=== PATIENT | female | born 1950 | race Caucasian/White ===

== ENCOUNTER → 2018-04-28 | Outpatient (CLI) | payer OTHER ==
[~2018-04-28] MED LIST: Antivert25 MG PO; ELIQUIS5 MG PO; IBUP400 PO; METF500 PO; OMEP40CA12 PO; ZESTORETIC 20-121 EA
== END | disposition home or self-care (01) ==
LOC: LAB SHORT 09:02 → PLD 09:02
DX: C44.329 Squamous cell carcinoma of skin of other parts of face (principal)
CPT/HCPCS: 88305

== ENCOUNTER → 2018-06-03 | Outpatient (CLI) | payer OTHER | END | disposition home or self-care (01) | LOC: PLD 10:36 → LAB SHORT 10:36 | DX: C44.320 Squamous cell carcinoma of skin of unspecified parts of face (principal) | CPT/HCPCS: 88305 ==

== ENCOUNTER → 2019-06-06 | Outpatient (CLI) | payer OTHER, SELFPAY | LOC: LAB SHORT 11:12 → PLD 11:12 | DX: L82.1 Other seborrheic keratosis (principal) | CPT/HCPCS: 88305 ==

== ENCOUNTER → 2020-09-07 | Outpatient (CLI) | payer OTHER ==
[2020-09-10 13:46] LABS: Stool Occult Bld Immuno 1 Negative (NEGATIVE)
== END | disposition home or self-care (01) ==
LOC: LAB EV 08:47
PROVIDERS: Physician Assistant
DX: D64.9 Anemia, unspecified (principal)
CPT/HCPCS: G0328

== ENCOUNTER 2020-12-07 12:49 | Inpatient (IN) | payer OTHER ==
[~2020-12-07] VITALS: Ht 160 cm; Wt 101.6 kg
[~2020-12-07 12:49] MED LIST changes: +OMEP20ER PO; -OMEP40CA12 PO
[2020-12-07 13:38] LABS: BASOPHILS ABSOLUTE AUTO 0.07 K/mm3 (0.00-0.23); BASOPHILS PERCENT AUTO 1 % (0-2); EOSINOPHILS ABSOLUTE AUTO 0.24 K/mm3 (0.00-0.68); EOSINOPHILS PERCENT AUTO 3 % (0-6); Hematocrit 32.7 % (33.0-51.0); Hemoglobin 10.3 g/dL (11.5-16.0); IMMATURE GRAN ABSOLUTE AUTO 0.03 K/mm3 (0.00-0.10); IMMATURE GRAN PERCENT AUTO 0 % (0-1); LYMPHOCYTES ABSOLUTE AUTO 2.85 K/mm3 (0.84-5.20); LYMPHOCYTES PERCENT AUTO 34 % (21-46); MONOCYTES ABSOLUTE AUTO 1.03 K/mm3 (0.16-1.47); MONOCYTES PERCENT AUTO 12 % (4-13); Mean Corpuscular HGB 25.3 pg (26.0-34.0); Mean Corpuscular HGB Conc 31.5 g/dL (31.5-36.5); Mean Corpuscular Volume 80 fL (80-100); Mean Platelet Volume 9.3 fL (9.1-12.4); NEUTROPHILS ABSOLUTE AUTO 4.08 K/mm3 (1.96-9.15); NEUTROPHILS PERCENT AUTO 49 % (41-73); Platelet Count 425 K/mm3 (150-400); RDW Coefficient Variation 17.2 % (11.7-14.2); RDW Standard Deviation 50.9 fL (35.1-46.3); Red Blood Cell Count 4.07 M/mm3 (3.80-5.20)
[2020-12-07 13:48] LABS: Albumin, Blood 3.7 g/dL (3.4-5.0); Bilirubin, Total 0.3 mg/dL (0.1-1.0); Bun/Creatinine Ratio 33.7 (12.0-20.0); Calcium, Blood 9.6 mg/dL (8.5-10.1); Creatinine, Blood 0.98 mg/dL (0.40-1.00); Globulin, Blood 3.7 g/dL (2.2-4.0); Total Protein, Blood 7.4 g/dL (6.4-8.2)
[2020-12-07 18:18] LABS: SARS-Cov-2 (COVID-19) PCR, MMC POSITIVE (NEGATIVE)
--- NOTE | 2020-12-07 18:18 | NUR ---
PATIENT ARRIVED TO THE FLOOR VIA STRETCHER FROM THE ED. TRANSFERED TO BED FROM STRETCHER WITH NO ISSUES. COMPLAINS OF PAIN IN RIGHT HIP, MEDICATED PER MD PRN ORDERS, MED EFFECTIVE FOR PAIN. PATIENT ALERT AND ORIENTED X 4 AND ABLE TO MAKE NEEDS AND WANTS KNOWN AT THIS TIME. CALL LIGHT IN EASY REACH. WILL CONTINUE TO MONITOR.
--- NOTE | 2020-12-07 18:35 | NUR ---
RECIEVED CALL FROM LAB. COVID POSITIVE RESULT. NOTIFIED DR HERNANDEZ, HOSPITALIST. NO ORDERS, PT ASYMPTOMATIC. ISOLATION ORDERS PLACED.
[2020-12-08 04:13] LABS: BASOPHILS ABSOLUTE AUTO 0.04 K/mm3 (0.00-0.23); BASOPHILS PERCENT AUTO 1 % (0-2); EOSINOPHILS ABSOLUTE AUTO 0.04 K/mm3 (0.00-0.68); EOSINOPHILS PERCENT AUTO 1 % (0-6); Hematocrit 31.5 % (33.0-51.0); Hemoglobin 9.8 g/dL (11.5-16.0); IMMATURE GRAN ABSOLUTE AUTO 0.02 K/mm3 (0.00-0.10); IMMATURE GRAN PERCENT AUTO 0 % (0-1); LYMPHOCYTES ABSOLUTE AUTO 1.93 K/mm3 (0.84-5.20); LYMPHOCYTES PERCENT AUTO 25 % (21-46); MONOCYTES ABSOLUTE AUTO 1.24 K/mm3 (0.16-1.47); MONOCYTES PERCENT AUTO 16 % (4-13); Mean Corpuscular HGB 25.3 pg (26.0-34.0); Mean Corpuscular HGB Conc 31.1 g/dL (31.5-36.5); Mean Corpuscular Volume 81 fL (80-100); Mean Platelet Volume 9.1 fL (9.1-12.4); NEUTROPHILS ABSOLUTE AUTO 4.48 K/mm3 (1.96-9.15); NEUTROPHILS PERCENT AUTO 58 % (41-73); Platelet Count 289 K/mm3 (150-400); RDW Coefficient Variation 17.5 % (11.7-14.2); RDW Standard Deviation 52.3 fL (35.1-46.3); Red Blood Cell Count 3.87 M/mm3 (3.80-5.20); White Blood Cell Count 7.75 K/mm3 (4.00-11.30)
[2020-12-08 04:33] LABS: Alanine Aminotransfer (ALT/SGP 22 U/L (12-78); Albumin, Blood 3.2 g/dL (3.4-5.0); Albumin/Globulin Ratio 0.9 (0.8-1.8); Alk Phos 63 U/L (50-136); Anion Gap 7 mmol/L (6-16); Aspartate Aminotrans (AST/SGOT 15 U/L (12-37); Bilirubin, Total 0.4 mg/dL (0.1-1.0); Blood Urea Nitrogen 24 mg/dL (8-24); CO2, Blood 26 mmol/L (21-32); Calcium, Blood 8.4 mg/dL (8.5-10.1); Chloride, Blood 104 mmol/L (98-108); Creatinine, Blood 0.83 mg/dL (0.40-1.00); Globulin, Blood 3.5 g/dL (2.2-4.0); Glomerular Filtration Rate >60 (60-); Glucose, Blood 97 mg/dL (70-99); Sodium, Blood 137 mmol/L (136-145); Total Protein, Blood 6.7 g/dL (6.4-8.2)
--- NOTE | 2020-12-08 07:24 | NUR ---
PT TAKEN TO SURGERY AT THIS TIME.
--- NOTE | 2020-12-08 10:24 | NUR ---
PT RETURNED FROM PACU. SITTING UP AND DROWSY BUT AROUSABLE. PT DENIES PAIN AT THIS TIME. RETURNED ON 3 L O2 WITH SATS IN THE MID TO HIGH 90'S. PT IS HAVING SOME NAUSEA AND DID VOMIT 200 ML OF CLEAR MUCUS. SPOKE WITH DR. BALDERAS AND RECEIVED ORDER FOR NEW NAUSEA MEDICATION SINCE PT HAD JUST RECEIVED ZOFRAN AND STILL HAD VOMITING. PT IS COMFORTABLE IN BED EATING ICE CHIPS AND NOW TOLERATING WELL. PT HAS STRONG PEDAL PULSES. LUNGS SOUNDS ARE DIMINISHED IN BASES. EDUCATED PT ON DEEP BREATHING.
--- NOTE | 2020-12-08 14:29 | NUR ---
WEANED PT OFF OF O2. O2 SATS MAINTAINING AT 93% ON ROOM AIR. CONTINUOUS PULSE OX IN PLACE.
--- NOTE | 2020-12-08 15:13 | NUR ---
PT'S O2 SAT DESATURATED TO HIGH 90'S. PUT PT BACK ON 1 L O2 AND PT IS CURRENTLY AT 98%.
--- NOTE | 2020-12-08 18:07 | NUR ---
SHIFT SUMMARY POD 0 FOR R HIP GAMMA NAILING. PT WENT TO SURGERY FIRST THING THIS AM. TOLERATED WELL. AQUACEL X2 IS IN PLACE. UPPER DRESSING HAS A PEA SIZED BLOOD SPOT SHOWING THROUGH OTHERWISE C/D/I. LOWER DRESSING HAS A HALF DOLLAR SIZE BLOOD SPOT SHOWIN THROUGH, OTHERWISE C/D/I. PT RETURNED FROM PACU WITH SOME N/V WHICH THIS RN TREATED WITH MEDICATION PER EMAR. N/V HAS SINCE PASSED AND PT IS TOLERATING FOOD AND FLUIDS WELL W/O COMPLAINT OF N/V. PT WAS WEANED OFF OF 3 L O2 VIA NC OF WHICH SHE CAME BACK FROM PACU WITH. CONTINUOUS OX IS IN PLACE DUE TO H/O OF SLEEP HYPOXIA AND O2 SATS DROPPING TO HIGH 80'S AFTER WEANING. THIS RN THEN PLACED PT BACK ON 1 L O2 VIA NC AND PT IS CURRENTLY AT 98%. PT'S PAIN HAS BEEN MINIMAL. ONLY PAIN REPORTED WAS WITH MOVEMENT AND WORKING WITH PHYSICAL THERAPY AND PT WAS MEDICATED PER EMAR. PT WORKED WITH PHYSICAL THERAPY TODAY AND TOLERATED WELL. PT WAS ABLE TO GET UP INTO CHAIR OF WHICH SHE IS CURRENTLY IN. PT AMBULATES [facility] WITH GAITBELT AND 1 ASSIST. SHE IS USING THE BEDSIDE COMMODE.
--- NOTE | 2020-12-08 18:42 | NUR ---
DR. BALDERAS REQUESTED THAT PT BE RESTARTED ON ELIQUIS SOON ORTHO WAS COMFORTABLE WITH RESTARTING. EVAN OH CONTACTED REGARDING ELIQUIS AND REPORTED OK TO RESTART FOR EVENING DOSE.
--- NOTE | 2020-12-09 07:42 | NUR ---
SUMMARY PT PAINFUL WITH BACK TO BED TONIGHT.ENC TO REST AND NOT OVERDUE.
--- NOTE | 2020-12-09 09:04 | NUR ---
CHANGED R DISTAL HIP AQUACEL DRESSING PER REQUEST AT APPROX. 0830
--- NOTE | 2020-12-09 14:19 | NUR ---
WEANED PT OFF OF O2 WHILE UP IN CHAIR. PT MAINTAINING O2 SATURATION AT 95% ON ROOM AIR. CONTINUOUS PULSE OX IN PLACE.
--- NOTE | 2020-12-09 17:13 | NUR ---
VERBAL OKAY PER PT TO SPEAK WITH PT'S [id number], ANTOINETTE. ANTOINETTE WAS CONCERNED ABOUT PT BEING COVID POSITIVE AND COMING HOME DUE TO AN OLDER GENTLEMAN THAT LIVES AT THE HOME THAT HAS PARKINSON'S. ANTOINETTE WAS ALSO CONCERNED ABOUT THE ONLY SHOWER THAT IS A WALK IN IS THE ONE FOR THE OLDER GENTLEMAN AND THAT WOULD HAVE TO BE SHARED BY HIM AND THE PT. SPOKE WITH DR. BALDERAS REGARDING HER CONCERNS AND PER DR. BALDERAS WILL RETEST PT TOMORROW BEFORE DISCHARGE. IF NEGATIVE PT DOES NOT NEED TO WORRY ABOUT PASSING ANYTHING TO FAMILY. IF POSITIVE AGAIN, PT SHOULD CONTINUE TO QUARANTINE BEST SHE CAN AT HOME AND RETEST IN A FEW DAYS.
--- NOTE | 2020-12-09 17:23 | NUR ---
SHIFT SUMMARY POD 1 FOR R HIP GAMMA NAIL. PT IS A&O X3 WITH MILD FORGETFULNESS AND VERY PLEASANT. AQUACEL IS IN TACT WITH QUARTER SIZE BLOOD COLORED DRAINAGE THAT IS NOT TOUCHING THE EDGES ON THE PROXIMAL BANDAGE. DISTAL DRESSING IS C/D/I AND WAS CHANGED TODAY PER REQUEST FROM DR. SNOW. PT HAS BEEN IN THE CHAIR ALL DAY, GETTING UP TO USE THE BEDSIDE COMMODE WITH FWW, GAITBELT, AND A 1 PERSON ASSIST. NO REPORT OF N/V. SOME PAIN TODAY WITH MOVEMENT AND PT WAS MEDICATED PER EMAR. CALL LIGHT IS WITHIN REACH.
[2020-12-10 04:33] LABS: BASOPHILS ABSOLUTE AUTO 0.04 K/mm3 (0.00-0.23); BASOPHILS PERCENT AUTO 1 % (0-2); EOSINOPHILS PERCENT AUTO 1 % (0-6); Hematocrit 25.8 % (33.0-51.0); IMMATURE GRAN ABSOLUTE AUTO 0.03 K/mm3 (0.00-0.10); IMMATURE GRAN PERCENT AUTO 0 % (0-1); LYMPHOCYTES ABSOLUTE AUTO 2.35 K/mm3 (0.84-5.20); LYMPHOCYTES PERCENT AUTO 33 % (21-46); MONOCYTES ABSOLUTE AUTO 1.07 K/mm3 (0.16-1.47); MONOCYTES PERCENT AUTO 15 % (4-13); Mean Corpuscular HGB 25.8 pg (26.0-34.0); Mean Corpuscular Volume 83 fL (80-100); Mean Platelet Volume 9.7 fL (9.1-12.4); NEUTROPHILS ABSOLUTE AUTO 3.52 K/mm3 (1.96-9.15); NEUTROPHILS PERCENT AUTO 50 % (41-73); Platelet Count 303 K/mm3 (150-400); RDW Coefficient Variation 17.5 % (11.7-14.2); RDW Standard Deviation 53.5 fL (35.1-46.3); White Blood Cell Count 7.11 K/mm3 (4.00-11.30)
[2020-12-10 04:49] LABS: Anion Gap 3 mmol/L (6-16); Blood Urea Nitrogen 18 mg/dL (8-24); Bun/Creatinine Ratio 21.2 (12.0-20.0); CO2, Blood 29 mmol/L (21-32); Calcium, Blood 8.4 mg/dL (8.5-10.1); Chloride, Blood 104 mmol/L (98-108); Creatinine, Blood 0.85 mg/dL (0.40-1.00); Glomerular Filtration Rate >60 (60-); Glucose, Blood 91 mg/dL (70-99); Potassium, Blood 3.9 mmol/L (3.5-5.5); Sodium, Blood 136 mmol/L (136-145)
--- NOTE | 2020-12-10 06:42 | NUR ---
PT IS A/OX3, BUT FORGETFUL AT TIMES. ABLE TO MAKE HER NEEDS NKOWN. PLEASANT AND COOPERATIVE WITH STAFF AND HER CARE. NO EVENTS DURING NOC. PT IS S/P RT HIP GAMMA NAILING FOR FX SUSTAINGED IN GLF. RT HIP INCISIONS COVERED WITH AQUACEL DRSGS. SM AMT OLD BLOODY DRNG. 1PA WITH BED REPOSITIONING. USED BED EASLEY. PRN NORCO GIVEN W/GOOD RESULTS. OXYGEN AT 1L PER NC WHILE SLEEPING D/T DE-SATS WHEN ASLEEP. HX OF SLEEP APNEA. PIV TO RT WRIST, PATENT, SL.
--- NOTE | 2020-12-10 07:58 | NUR ---
12/10/20 0758 Jessica Wolff VERIFICATIONS: EDIT CHART.
[2020-12-10 09:33] LABS: SARS-Cov-2 (COVID-19) PCR, MMC POSITIVE (NEGATIVE)
--- NOTE | 2020-12-10 15:50 | NUR ---
214: J.S. Per chart review with Dr. Anderson, pt is COVID positive and is stable to discharge home today. Pt will need home health services, she would like to use [facility]. Pt lives alone but her son helps her out. Son will be coming to get her at discharge around 6pm. Pt reports thaqt she does not need any DME. Pt requested help with OHP, will get her in contact with David at [facility] to help with insurances. Notified Dr. Mcneal that floor nurse can help with getting the pt's pain medications scripts for discharge. Waiting for pt's home O2 eval to be completed so oxygen can be ordered. ([employer] went down during charting and also [employer]. Unable to order any equipment or put notes into either system.) -[email or web address]
[2020-12-10] MEDS ORDERED: HYDR1TAB94 PO (16:56)
--- NOTE | 2020-12-10 18:25 | NUR ---
SHIFT SUMMARY/DISCHARGE SUMMARY PT TOLERATING WEIGHTBEARING STATUS WELL. AMBULATING TO BEDSIDE COMMODE AND BACK TO CHAIR OR BED. PAIN BEING MANAGED PER EMAR. HOME O2 EVAL DONE AND PATIENT DOES NOT NEED O2 FOR DURING THE DAY, STATS STAYING ABOVE 98% IF PT IS AWAKE. IV TAKEN OUT, WRITTEN AND VERBAL DISCHARGE INSTRUCTIONS GIVEN. PT VERBALIZES UNDERSTANDING. BELONGINGS TAKEN OUT WITH PT. PT TO DISCHARGE HOME VIA AUTOMOBILE WITH SON. EXTRA DRESSINGS SENT HOME WITH PT. SLEEP EVAL TO BE DONE OUTPATIENT. PT DC'D AT APPROX 1810.
== END 2020-12-10 18:21 | disposition home or self-care (01) | DRG 480 ==
LOC: ER 12:49 → SURS 16:30
PROVIDERS: Orthopaedic Surgery; Physician Assistant; ADMIT Family Medicine
PROC: 0QS636Z Reposition Right Upper Femur with Intramedullary Internal Fixation Device, Percutaneous Approach (ICD-10-PCS; principal; 2020-12-08 07:30)
DX: M80.051A Age-related osteoporosis with current pathological fracture, right femur, initial encounter for fracture (principal); U07.1 COVID-19; E72.11 Homocystinuria; I12.9 Hypertensive chronic kidney disease with stage 1 through stage 4 chronic kidney disease, or unspecified chronic kidney disease; E11.22 Type 2 diabetes mellitus with diabetic chronic kidney disease; N18.30 Chronic kidney disease, stage 3 unspecified; K21.9 Gastro-esophageal reflux disease without esophagitis; E78.5 Hyperlipidemia, unspecified; G25.81 Restless legs syndrome; G47.33 Obstructive sleep apnea (adult) (pediatric); G47.36 Sleep related hypoventilation in conditions classified elsewhere; K22.70 Barrett's esophagus without dysplasia; E66.9 Obesity, unspecified; W18.30XA Fall on same level, unspecified, initial encounter; Y92.512 Supermarket, store or market as the place of occurrence of the external cause; Z68.38 Body mass index [BMI] 38.0-38.9, adult; Z91.19 Patient's noncompliance with other medical treatment and regimen; Z79.899 Other long term (current) drug therapy; Z79.01 Long term (current) use of anticoagulants; Z79.84 Long term (current) use of oral hypoglycemic drugs
CPT/HCPCS: 36415; 73502; 80048; 80053; 82947; 85025; 94761; 94762; 96374-59; 96375-59; 96376-59; 97110; 97116; 97161; 97530; 99285-25; A9270; C1713; J0690; J1100; J1885; J2270; J2370; J2405; J2550; J2704; J3010; J7030; U0004

== ENCOUNTER 2021-11-12 03:49 | Emergency (ER) | payer OTHER | END 2021-11-12 06:59 | disposition home or self-care (01) | LOC: ER 03:49 | DX: R42 Dizziness and giddiness (principal); I12.9 Hypertensive chronic kidney disease with stage 1 through stage 4 chronic kidney disease, or unspecified chronic kidney disease; E11.22 Type 2 diabetes mellitus with diabetic chronic kidney disease; N18.30 Chronic kidney disease, stage 3 unspecified; K21.9 Gastro-esophageal reflux disease without esophagitis; Z79.84 Long term (current) use of oral hypoglycemic drugs; Z79.899 Other long term (current) drug therapy ==

== ENCOUNTER → 2021-11-20 | Outpatient (CLI) | payer OTHER ==
[~2021-11-20] MED LIST changes: +HYDR1TAB94 PO; +VALIUM PO
== END | disposition home or self-care (01) ==
LOC: LAB SHORT 10:57
DX: D48.5 Neoplasm of uncertain behavior of skin (principal)
CPT/HCPCS: 88305

== ENCOUNTER → 2022-01-27 | Outpatient (CLI) | payer OTHER ==
[2022-01-28 09:24] LABS: Stool Occult Bld Immuno 1 Negative (NEGATIVE); Stool Occult Bld Immuno 2 Negative (NEGATIVE); Stool Occult Bld Immuno 3 Negative (NEGATIVE)
== END | disposition home or self-care (01) ==
LOC: LAB 12:14 → LAB SHORT 12:14
PROVIDERS: Physician Assistant
DX: D50.9 Iron deficiency anemia, unspecified (principal)
CPT/HCPCS: G0328

== ENCOUNTER → 2022-07-26 | Outpatient (CLI) | payer OTHER ==
[2022-07-29 10:34] LABS: Stool Occult Bld Immuno 1 Positive (NEGATIVE)
== END | disposition home or self-care (01) ==
LOC: LAB SHORT 18:30 → LAB 18:30
PROVIDERS: Physician Assistant
DX: K92.1 Melena (principal)
CPT/HCPCS: 82274

== ENCOUNTER 2022-11-19 10:39 | Day surgery (SDC) | payer OTHER ==
[~2022-11-19] VITALS: Ht 160 cm; Wt 97.7 kg
[2022-11-19 12:11] VITALS: BP 130/83
--- NOTE | 2022-11-19 12:11 | NUR ---
11/19/22 1211 Ilya Moore IV REMOVED INTACT. SITE WNL.
== END 2022-11-19 12:00 | disposition home or self-care (01) ==
LOC: ORSCSDS 10:39
PROVIDERS: Internal Medicine Gastroenterology
PROC: 0DJD8ZZ Inspection of Lower Intestinal Tract, Via Natural or Artificial Opening Endoscopic (ICD-10-PCS; principal; 2022-11-19 12:30)
DX: D50.9 Iron deficiency anemia, unspecified (principal); K64.8 Other hemorrhoids; K57.30 Diverticulosis of large intestine without perforation or abscess without bleeding; I10 Essential (primary) hypertension; E66.9 Obesity, unspecified; K21.9 Gastro-esophageal reflux disease without esophagitis; G47.33 Obstructive sleep apnea (adult) (pediatric); K22.70 Barrett's esophagus without dysplasia; Z86.718 Personal history of other venous thrombosis and embolism; Z79.01 Long term (current) use of anticoagulants; Z79.899 Other long term (current) drug therapy; Z79.84 Long term (current) use of oral hypoglycemic drugs
CPT/HCPCS: 82947; J2704; J7120

== ENCOUNTER 2024-08-24 05:45 | Inpatient (IN) | payer OTHER ==
[~2024-08-24] VITALS: Ht 160 cm; Wt 89.4 kg
[2024-08-24 06:24] LABS: BASOPHILS ABSOLUTE AUTO 0.04 K/mm3 (0.00-0.23); BASOPHILS PERCENT AUTO 0 % (0-2); EOSINOPHILS ABSOLUTE AUTO 0.03 K/mm3 (0.00-0.68); EOSINOPHILS PERCENT AUTO 0 % (0-6); Hematocrit 36.7 % (33.0-51.0); Hemoglobin 12.2 g/dL (11.5-16.0); IMMATURE GRAN ABSOLUTE AUTO 0.06 K/mm3 (0.00-0.10); IMMATURE GRAN PERCENT AUTO 0 % (0-1); LYMPHOCYTES PERCENT AUTO 4 % (21-46); MONOCYTES ABSOLUTE AUTO 1.51 K/mm3 (0.16-1.47); MONOCYTES PERCENT AUTO 10 % (4-13); Mean Corpuscular HGB 28.9 pg (26.0-34.0); Mean Corpuscular HGB Conc 33.2 g/dL (31.5-36.5); Mean Corpuscular Volume 87 fL (80-100); Mean Platelet Volume 8.9 fL (9.1-12.4); NEUTROPHILS PERCENT AUTO 85 % (41-73); Platelet Count 332 K/mm3 (150-400); RDW Coefficient Variation 13.5 % (11.7-14.2); RDW Standard Deviation 42.5 fL (35.1-46.3); Red Blood Cell Count 4.22 M/mm3 (3.80-5.20); White Blood Cell Count 15.94 K/mm3 (4.00-11.30)
[2024-08-24] MEDS ORDERED: FentaNYL Citrate 50 MCG/ML 2 ML Injection IV ONE (06:35)
[2024-08-24] MEDS ORDERED: Ondansetron HCl 2 MG / ML 2ML Vial IV ONE (06:35)
[2024-08-24 06:50] LABS: Albumin, Blood 3.8 g/dL (3.4-5.0); Albumin/Globulin Ratio 1.1 (0.8-1.8); Bilirubin, Total 0.5 mg/dL (0.1-1.0); Bun/Creatinine Ratio 28.9 (12.0-20.0); Creatinine, Blood 0.76 mg/dL (0.40-1.00); Globulin, Blood 3.5 g/dL (2.2-4.0); Potassium, Blood 3.4 mmol/L (3.5-5.5); Total Protein, Blood 7.3 g/dL (6.4-8.2)
[2024-08-24 07:59] LABS: Source, Urine Clean Catch
[2024-08-24 08:03] LABS: Appearance, Urine Clear (Clear); Bilirubin, Urine Neg (Neg); Blood, Urine Neg (Neg); Color, Urine Yellow (P-Yellow); Glucose Qualitative, Urine Neg (Neg); Ketones, Urine Neg (Neg); Leukocyte Esterase, Urine Neg (Neg); Nitrite, Urine Neg (Neg); Protein, Urine 1+ (Neg); Specific Gravity, Urine 1.015 (1.003-1.022); Urobilinogen, Urine NORM (Normal)
[2024-08-24] MEDS ORDERED: NS 1,000 ML IV SCH (09:50)
[2024-08-24] MEDS ORDERED: CefTRIAXone Sodium 1,000 MG in NS 100 ML IV ONE (09:50)
[2024-08-24] MEDS ORDERED: MetroNIDAZOLE 500MG/NS 100 ml 100 ML IV ONE (09:50)
[2024-08-24] MEDS ORDERED: Acetaminophen 500 MG Tab PO PRN (12:05)
[2024-08-24] MEDS ORDERED: Lactated Ringer's 1,000 ML IV SCH (12:05)
[2024-08-24] MEDS ORDERED: Magnesium Hydroxide Conc 10 ML UDC PO PRN (12:05)
[2024-08-24 15:17] VITALS: BP 117/49
[2024-08-24] MEDS ORDERED: AMLO5 PO (15:22)
[2024-08-24 16:26] VITALS: BP 125/55
[2024-08-24] MEDS ORDERED: Omeprazole 20 MG CapCR PO SCH (16:30)
--- NOTE | 2024-08-24 18:31 | NUR ---
SHIFT SUMMARY MS HU ARRIVED FROM ER VIA WHEELCHAIR AT 1504HRS TO MEDICAL UNIT. SHE WAS ABLE TO TRANSFER STEADILY AND INDEPENDENTLY TO THE BED AND TO THE BATHROOM. SHE C/O 4/10 RLQ ABDOMINAL PAIN WHICH SHE SAID IS TOLERABLE AND NOT BAD WHEN SHE IS IN BED, INCREASES WHEN SHE STANDS AND WALKS. PLACED ON TELEMETRY IN SR. IVF INFUSING AT 125CC/HR. TOLERATING PO FLUIDS WITHOUT C/O NAUSEA. SHE HAS A BRUISE ON HER RIGHT FOREHEAD FROM A FEW DAYS AGO WHEN A CUPBOARD DOOR HIT HER HEAD, OTHERWISE SKIN LOOKS GOOD. ORIENTATED X4. BED LOW, ALL LIGHT IN REACH.
[2024-08-24 19:37] VITALS: BP 138/55
[2024-08-24] MEDS ORDERED: Lactobacil 2-S.Thermo-Bifido 1 1 Cap PO SCH (21:00)
[2024-08-24] MEDS ORDERED: Docusate Sodium 100 MG Cap PO SCH (21:00)
[2024-08-25] VITALS (16 sets, daily range): BP systolic 95–148; BP diastolic 46–92
--- NOTE | 2024-08-25 06:31 | NUR ---
SHIFT SUMMARY PT HAS BEEN RESTING COMFORTABLY OVERNIGHT. PT HAS BEEN AOX4, CALM AND COOPERATIVE. SHE HAS BEEN SBA TO RESTROOM. PT HAD COMPLAINTS OF ABD PAIN, AND SHE WAS GIVEN TYLENOL, WHICH RELIEVED HER PAIN. PT HAD NO OTHER COMPLAINTS. SHE HAS BEEN ON TELE WITH NO EVENTS OVERNIGHT. PT HAD UNEVENTFUL NIGHT.
[2024-08-25] MEDS ORDERED: AmLODIPine Besylate 5 MG Tab PO SCH (09:00)
[2024-08-25] MEDS ORDERED: HydroCHLOROthiazide 25 mg Tab PO SCH (09:00)
[2024-08-25] MEDS ORDERED: CefTRIAXone Sodium 1,000 MG in NS 100 ML IV SCH (09:00)
[2024-08-25] MEDS ORDERED: MetroNIDAZOLE 500MG/NS 100 ml 100 ML IV SCH (09:00)
[2024-08-25] MEDS ORDERED: Enoxaparin 40 MG/0.4 ML SYR SC SCH (09:00)
[2024-08-25] MEDS ORDERED: Lisinopril 20 MG Tab PO SCH (09:00)
[2024-08-25 09:14] LABS: BASOPHILS ABSOLUTE AUTO 0.05 K/mm3 (0.00-0.23); BASOPHILS PERCENT AUTO 0 % (0-2); EOSINOPHILS ABSOLUTE AUTO 0.03 K/mm3 (0.00-0.68); EOSINOPHILS PERCENT AUTO 0 % (0-6); Hemoglobin 10.3 g/dL (11.5-16.0); IMMATURE GRAN ABSOLUTE AUTO 0.08 K/mm3 (0.00-0.10); IMMATURE GRAN PERCENT AUTO 1 % (0-1); LYMPHOCYTES ABSOLUTE AUTO 1.66 K/mm3 (0.84-5.20); LYMPHOCYTES PERCENT AUTO 10 % (21-46); MONOCYTES ABSOLUTE AUTO 1.11 K/mm3 (0.16-1.47); MONOCYTES PERCENT AUTO 7 % (4-13); Mean Corpuscular HGB 28.9 pg (26.0-34.0); Mean Corpuscular HGB Conc 32.2 g/dL (31.5-36.5); Mean Corpuscular Volume 90 fL (80-100); Mean Platelet Volume 9.2 fL (9.1-12.4); NEUTROPHILS ABSOLUTE AUTO 13.91 K/mm3 (1.96-9.15); NEUTROPHILS PERCENT AUTO 83 % (41-73); Platelet Count 285 K/mm3 (150-400); RDW Coefficient Variation 13.5 % (11.7-14.2); RDW Standard Deviation 44.4 fL (35.1-46.3); Red Blood Cell Count 3.57 M/mm3 (3.80-5.20); White Blood Cell Count 16.84 K/mm3 (4.00-11.30)
[2024-08-25] MEDS ORDERED: NS 250 ML IV PRN (09:30)
[2024-08-25 09:39] LABS: Albumin/Globulin Ratio 0.9 (0.8-1.8); Bilirubin, Total 0.6 mg/dL (0.1-1.0); Bun/Creatinine Ratio 19.4 (12.0-20.0); Calcium, Blood 9.2 mg/dL (8.5-10.1); Creatinine, Blood 0.72 mg/dL (0.40-1.00); Globulin, Blood 3.5 g/dL (2.2-4.0); Potassium, Blood 3.4 mmol/L (3.5-5.5); Total Protein, Blood 6.5 g/dL (6.4-8.2)
[2024-08-25] MEDS ORDERED: Potassium Chl 20MEQ/Water100ML 100 ML IV STA (09:54)
[2024-08-25 12:21] LABS: International Normalized Ratio 0.95; Prothrombin Time Results 10.5 Sec (9.7-11.5)
[2024-08-25] MEDS ORDERED: Dose Adjust by Pharmacy XX STA (12:59)
[2024-08-25] MEDS ORDERED: Heparin Sodium,Porcine/0.5 NS 500 ML IV SCH (13:00)
[2024-08-25] MEDS ORDERED: NS 500 ML IV SCH (14:00)
--- NOTE | 2024-08-25 14:33 | NUR ---
MD CALL REPORTED TO DR JACOB THAT PT C/O BLACK SPOTS IN FRONT OF HER LEFT EYE. NO HEADACHE. BP STABLE. NO NEW ORDERS
--- NOTE | 2024-08-25 16:53 | NUR ---
SHIFT SUMMARY MS HU IS ORIENTATED X 4. UP INDEPENDENTLY TO THE BATHROOM, STEADY GAIT. CT ABDOMEN/PELVIS DONE AND ECHO DONE TODAY. HEPARIN DRIP STARTED AT 1400HRS. SHE HAS MODERATE ABDOMINAL PAIN THAT IS HELPED WITH TYLENOL. THE BLACK SPOTS IN HER LEFT EYE VISION WERE THERE TEMPORARILY AND WENT AWAY. PLAN FOR MESENTERIC ANGIOGRAM TODAY.
[2024-08-25] MEDS ORDERED: NS 250 ML IV ONE (18:36)
[2024-08-25] MEDS ORDERED: NS 1,000 ML IV ONE ×2 (18:36→18:37)
[2024-08-25] MEDS ORDERED: Heparin Sodium 1000 Units/ML 10ML MDV ONE (18:36)
[2024-08-25] MEDS ORDERED: FentaNYL Citrate 50 MCG/ML 2 ML Injection ONE (18:37)
[2024-08-25] MEDS ORDERED: Midazolam HCl 1MG / ML 2ML Vial ONE (18:37)
--- NOTE | 2024-08-25 18:49 | NUR ---
MAYTE LEFT FOR TITLE INSURANCE EXAMINER VIA WHEELCHAIR.
--- NOTE | 2024-08-25 20:41 | NUR ---
ARRIVAL TO UNIT - PT ARRIVES AT PCU19 FROM MEDICAID SPECIALIST AT APPROX 2000. TWO STENTS PLACED IN MEDICAID SPECIALIST [facility]. SHE IS ALERT AND ORIENTEDX4, SHE DENIES ANY PAIN. ON ROOM AIR, SATS ABOVE 90%. VSS. SHE IS A SUPINE POSITION. RIGHT FEMORAL SITE IS WITHIN NORMAL LIMITS, THERE IS NO BRUISING, NO HEMATOMA, NO SWELLING. VERY SMALL AMOUNT OF BLOOD VISIBLE UNDER DRESSING. MONITORING VITALS Q15, PT TO REMAIN SUPINE FOR 1.5 HOURS. GRANDTR NOTIFIED OF TRANSFER TO PCU AND MEDICAID SPECIALIST PROCEDURE.
[2024-08-25] MEDS ORDERED: FentaNYL Citrate 50 MCG/ML 2 ML Injection IV PRN (20:50)
[2024-08-26] VITALS (9 sets, daily range): BP systolic 103–144; BP diastolic 50–66
--- NOTE | 2024-08-26 04:44 | NUR ---
SHIFT SUMMARY - A/OX4, USES CALL LIGHT APPROPRIATELY, VERBALIZES NEEDS, PLEASANT AND COOPERATIVE WITH CARE. SHE ENDORSES MODERATE TO SEVERE LOWER QUADRANT ABDOMINAL PAIN THAT IS IMPROVED WITH MEDICATION. ON CONTINUOUS TELEMETRY, HR IN 80 S, BPS 100 S-120 S SYSTOLIC. RIGHT FEMORAL SITE IS DRESSED WITH TEGADERM, SMALL AMOUNT OF DRIED BLOOD NOTED, NO SWELLING, NO HEMATOMA. PT DENIES PAIN AT THE SITE. PEDAL PULSES PALPABLE BILATERALLY, BLE WARM TO TOUCH EQUALLY. ON RA, SATS ABOVE 90%, BREATHING IS EVEN AND UNLABORED. PT HAD BRIEF EPISODES OF DESATURATIONS IN THE 70 S AND 80 S WHILE SLEEPING, BUT RECOVERED QUICKLY AFTER WAKING AND REPOSITIONING. SHE STATES SHE HAS NO HX OF SLEEP APNEA AND DOES NOT USE OXYGEN AT HOME. SBA FOR LINE MANAGEMENT. HEPARIN GTT RUNNING AT 12/u/kg. PT HAS BRUISE ON RIGHT SIDE OF FOREHEAD FROM BUMPING HER HEAD ON A KITCHEN CABINET. SHE IS CONTINENT OF URINE AND STOOL.
[2024-08-26 05:10] LABS: Cholesterol 121 mg/dL (50-200); HDL Cholesterol 41 mg/dL (>39); LDL/HDL RATIO 1.4; Low Density Lipoprotein Chol 57 mg/dL (0-110); Triglycerides 115 mg/dL (30-160); Very Low Density Lipoprot Chol 23 mg/dL (6-32)
[2024-08-26] MEDS ORDERED: Dose Adjust by Pharmacy XX STA (05:42)
[2024-08-26] MEDS ORDERED: Pantoprazole Sodium 40 MG Tab PO SCH (06:00)
[2024-08-26 06:05] LABS: Hematocrit 29.6 % (33.0-51.0); Hemoglobin 9.5 g/dL (11.5-16.0); Mean Platelet Volume 9.8 fL (9.1-12.4); Platelet Count 269 K/mm3 (150-400)
[2024-08-26] MEDS ORDERED: Clopidogrel Bisulfate 75 MG Tab PO SCH (09:00)
[2024-08-26] MEDS ORDERED: CefTRIAXone Sodium 2,000 MG in NS 100 ML IV SCH (09:00)
[2024-08-26] MEDS ORDERED: Apixaban 5 MG Tab PO SCH (11:00)
--- NOTE | 2024-08-26 17:49 | NUR ---
Pt has reported minimal pain today, in her right groin site where the femoral artery was accessed yesterday. There is no bruising, no bleeding and no swelling at the site. She has been walking around the room, to the bathroom since this morning without difficulty. She has not had any increased discomfort with eating or drinking. Tolerating a soft diet but said that it felt a little "too rich" for lunch and just wanted cottage cheese and fruit for dinner.
--- NOTE | 2024-08-26 18:47 | NUR ---
Shift summary: Pt has been moving from chair to bed throughout the shift. We have advanced diet as tolerated, which pt has done well with. She has not reported nausea, and pain has been treated with tylenol PRN. Pt has had flatulence since procedure. Pt is motivated to improve overall condition and D/C.
[2024-08-27 00:21] VITALS: BP 131/67
[2024-08-27 04:50] VITALS: BP 142/69
[2024-08-27 05:01] LABS: BASOPHILS ABSOLUTE AUTO 0.05 K/mm3 (0.00-0.23); BASOPHILS PERCENT AUTO 1 % (0-2); EOSINOPHILS PERCENT AUTO 4 % (0-6); Hematocrit 30.3 % (33.0-51.0); IMMATURE GRAN ABSOLUTE AUTO 0.03 K/mm3 (0.00-0.10); IMMATURE GRAN PERCENT AUTO 0 % (0-1); LYMPHOCYTES ABSOLUTE AUTO 1.67 K/mm3 (0.84-5.20); LYMPHOCYTES PERCENT AUTO 22 % (21-46); MONOCYTES ABSOLUTE AUTO 0.86 K/mm3 (0.16-1.47); MONOCYTES PERCENT AUTO 11 % (4-13); Mean Corpuscular HGB 28.8 pg (26.0-34.0); Mean Corpuscular Volume 87 fL (80-100); Mean Platelet Volume 9.4 fL (9.1-12.4); NEUTROPHILS ABSOLUTE AUTO 4.68 K/mm3 (1.96-9.15); NEUTROPHILS PERCENT AUTO 62 % (41-73); Platelet Count 299 K/mm3 (150-400); RDW Coefficient Variation 13.3 % (11.7-14.2); Red Blood Cell Count 3.47 M/mm3 (3.80-5.20); White Blood Cell Count 7.59 K/mm3 (4.00-11.30)
[2024-08-27 05:44] LABS: Albumin, Blood 2.6 g/dL (3.4-5.0); Albumin/Globulin Ratio 0.8 (0.8-1.8); Bilirubin, Total 0.4 mg/dL (0.1-1.0); Bun/Creatinine Ratio 15.1 (12.0-20.0); Calcium, Blood 8.7 mg/dL (8.5-10.1); Creatinine, Blood 0.73 mg/dL (0.40-1.00); Globulin, Blood 3.4 g/dL (2.2-4.0); Magnesium, Blood 2.1 mg/dL (1.6-2.4); Phosphorus, Blood 3.4 mg/dL (2.5-4.9); Potassium, Blood 3.5 mmol/L (3.5-5.5)
--- NOTE | 2024-08-27 05:59 | NUR ---
SHIFT SUMM: PT WAS A PCU TRANSFER LAST NIGHT AND HAS BEEN DOING WELL RESTING AND SLEEPING. PT IS IND IN ROOM AND CALLS TO MAKE NEEDS KNOWN. PT ON RA AND TELE W/NSR IN THE 80'S. PT'S R GROIN SITE IS WNL. BM YESTERDAY. PT WAS MEDICATED FOR PAIN PER EMAR. POSSIBLE TO D/C TODAY. CALL LIGHT IN REACH AND BED LOW AND LOCKED.
[2024-08-27 07:37] VITALS: BP 135/68
[2024-08-27 11:44] VITALS: BP 144/72
[2024-08-27] MEDS ORDERED: PANT40 PO (12:49)
[2024-08-27] MEDS ORDERED: VISBIOME 112.51 EACH PO (12:50)
[2024-08-27] MEDS ORDERED: CLOP75 PO (12:50)
--- NOTE | 2024-08-27 13:54 | NUR ---
DISCHARGE PT DISCHARGE HOME. PT REFUSED ESCORT OUT. PT CALLING SON FOR RIDE. SHE PREFERS TO WAIT OUTSIDE. IV X2 REMOVED WITH CANNULA INTACT. COBAN/GAUZE APPLIED. CARE ONGOING.
== END 2024-08-27 14:00 | disposition home or self-care (01) | DRG 252 ==
LOC: ER 05:45 → MEDS 05:46 → PCU 08-25 20:43 → MEDS 08-26 23:42
PROVIDERS: Emergency Medicine; Hospitalist; ADMIT Family Medicine
PROC: 04HC3DZ Insertion of Intraluminal Device into Right Common Iliac Artery, Percutaneous Approach (ICD-10-PCS; principal; 2024-08-25)
PROC: B4141ZZ Fluoroscopy of Superior Mesenteric Artery using Low Osmolar Contrast (ICD-10-PCS; 2024-08-25)
DX: I77.1 Stricture of artery (principal); K55.039 Acute (reversible) ischemia of large intestine, extent unspecified; D68.59 Other primary thrombophilia; E72.11 Homocystinuria; K52.9 Noninfective gastroenteritis and colitis, unspecified; K59.09 Other constipation; K21.9 Gastro-esophageal reflux disease without esophagitis; K22.70 Barrett's esophagus without dysplasia; I70.1 Atherosclerosis of renal artery; I12.9 Hypertensive chronic kidney disease with stage 1 through stage 4 chronic kidney disease, or unspecified chronic kidney disease; N18.30 Chronic kidney disease, stage 3 unspecified; G25.81 Restless legs syndrome; E11.22 Type 2 diabetes mellitus with diabetic chronic kidney disease; Z98.890 Other specified postprocedural states; E78.5 Hyperlipidemia, unspecified; Z90.710 Acquired absence of both cervix and uterus; Z90.721 Acquired absence of ovaries, unilateral; Z88.8 Allergy status to other drugs, medicaments and biological substances; Z79.01 Long term (current) use of anticoagulants; Z79.899 Other long term (current) drug therapy
CPT/HCPCS: 36415; 37221; 74174; 74177; 75726; 76937; 80053; 80061; 83605; 83735; 84100; 85014; 85018; 85025; 85049; 85610; 85730; 93306; 94760; 96365; 96366; 96367; 96372; 96375; 99152; 99153; 99285-25; A9270; C1760; C1769; C1876; C1887; C1894; G0378; J0696; J1644; J1650; J2250; J2405; J3010; J3480; J7030; J7040; J7050; J7120; Q9967

== ENCOUNTER 2024-11-15 08:45 | Day surgery (SDC) | payer OTHER ==
[~2024-11-15] VITALS: Ht 160 cm; Wt 87.1 kg
[~2024-11-15 08:45] MED LIST changes: +ACET500; +AMLO5 PO; +ATOR40TA PO; +CLOP75 PO; +MELA3 PO; +METO25ER PO; +MULVITA PO; +PANT40 PO; +VISBIOME 112.51 EACH PO
[2024-11-15] MEDS ORDERED: ELIQUIS5 M2 PO (09:51)
[2024-11-15] MEDS ORDERED: NS 0 ML IV ONE (10:08)
[2024-11-15] MEDS ORDERED: NS 1,000 ML IV ONE ×2 (12:26→12:28)
[2024-11-15] MEDS ORDERED: Midazolam HCl 1MG / ML 2ML Vial ONE (12:26)
[2024-11-15] MEDS ORDERED: FentaNYL Citrate 50 MCG/ML 2 ML Injection ONE (12:26)
[2024-11-15] MEDS ORDERED: Heparin Sodium 1000 Units/ML 10ML MDV ONE (12:27)
[2024-11-15] MEDS ORDERED: NS 250 ML IV ONE (12:28)
[2024-11-15] MEDS ORDERED: Nitroglycerin 2 MG/20 ML BTL ONE (12:28)
[2024-11-15] MEDS ORDERED: NiCARdipine HCL 1,000 MCG/5 ML SYR ONE (12:28)
[2024-11-15 13:45] VITALS: BP 132/79
[2024-11-15 14:00] VITALS: BP 142/73
[2024-11-15 14:15] VITALS: BP 95/59
[2024-11-15 14:30] VITALS: BP 123/74
--- NOTE | 2024-11-15 15:02 | NUR ---
REPORT RECEIVED EARLIER, ARRIVED TO ROOM, GIVEN COFFEE, RESTING IN CHAIR, TR BAND INTACT WITH GOOD PULSES, VSS. LATER, DISCUSS D/C INSTRUCTIONS, RESUMING BP MEDICATIONS WELL METOPROLOL AND RESTARTING ELIQUIS TOMORROW, DISCUSSED RADIAL SITE CARE AND CALL/RETURN CONCERNS, AND FOLLOW UP APPOINTMENT. PATIENT DENIED QUESTIONS, CONCERNS, RECENTLY TR BAND DEFLATED AND MONITORING SITE, PENDING D/C OTHERWISE. PATIENT EATING AT PRESENT, DENIES NEEDS.
--- NOTE | 2024-11-15 15:48 | NUR ---
TR BAND REMOVED, SITE REMAINED INTACT, CLOTH DOT PLACED, PATIENT CONTACTED RIDE EARLIER, IV REMOVED, PATIENT DRESSED, BELONGINGS RETURNED, TAKEN BY WHEELCHAIR TO PATIENT ENTRANCE, REITERATED D/C INSTRUCTIONS TO GRANDDAUGHTER BRIEFLY, NO CONCERNS OTHERWISE AT TIME OF D/C. LEFT UNIT AT 1545.
== END 2024-11-15 15:45 | disposition home or self-care (01) ==
LOC: MHTC 08:45
DX: I25.10 Atherosclerotic heart disease of native coronary artery without angina pectoris (principal); I70.0 Atherosclerosis of aorta; I10 Essential (primary) hypertension; E78.5 Hyperlipidemia, unspecified; K21.9 Gastro-esophageal reflux disease without esophagitis; I73.9 Peripheral vascular disease, unspecified; K22.70 Barrett's esophagus without dysplasia; Z88.1 Allergy status to other antibiotic agents; Z79.82 Long term (current) use of aspirin; Z79.02 Long term (current) use of antithrombotics/antiplatelets; Z79.899 Other long term (current) drug therapy
CPT/HCPCS: 76937; 93454; 99152; A9270; C1769; C1894; J1644; J2250; J3010; J7030; J7050; Q9967